=== PATIENT | male | born 1980 | race Caucasian/White ===

== ENCOUNTER 2017-07-12 13:58 | Emergency (ER) | payer OTHER, SELFPAY ==
[2017-07-12 14:00] VITALS: BP 128/74; PULSE 88; RESP 14; TEMP 36.8; O2SAT 100; BMI 22.4
--- NOTE | 2017-07-12 14:38 | ED.VISSUMM ---
- ER Visit Summary Date of Service: 07/12/17 Chief Complaint: Low back pain History of Present Illness: The patient is a 36 M past medical or surgical history. No prior back surgery. 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 States his low back hurt today and he can go to work as he did not feel like lifting with his back discomfort. He denies any significant back problems in the past. Denies any fever. Denies any bowel or bladder incontinence. Denies any recent trauma. Denies any recent leg weakness, numbness or pain radiating to either leg. Physical Examination: Very young male. Vital signs are stable afebrile. Pulse ox are percent on room air no signs of hypoxia. HEENT exam unremarkable. Neck nontender. Lungs clear to auscultation bilaterally. Heart regular rate and rhythm no murmur. Abdomen soft nontender no peritoneal signs. He is moving all 4 extremities. They are neurovascularly intact. 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 He has 5 out of 5 dorsi plantarflexion of both lower extremities. No cauda equina. No saddle anesthesia. Normal medial thigh sensation. Full range of motion of both lower extremities. Normal strength. Negative straight leg raise bilaterally. Neurologic exam is normal. No motor or sensory deficits. NIH is 0. Back exam he has right paralumbar soft tissue tenderness consistent with myofascial strain of his lower back. The cervical, thoracic and lumbar spine are nontender. There is no warmth or redness. No signs of discitis. Test Results: none Emergency Department Course and Treatment: On exam are all consistent with myofascial strain. He needs no testing. He is comfortable being discharged to home. Treatment Plan: 800 mg 3 times a day with food. Hot shower, warm bath and massage. Disposition: dc Impression: Low back pain secondary to paralumbar myofascial strain This note was generated with [employer] dictation software. It may contain incorrect words, spelling, and punctuation that were not noted in review of the chart prior to signing ED Disposition - Plan for ED Patient: Chief Complaint: Back Referrals: Care Physician,No Primary [Primary Care Provider] -
--- NOTE | 2017-07-12 14:41 | ED.DCSUM_ITS ---
- ER Visit Summary Date of Service: 07/12/17 Chief Complaint: Low back pain History of Present Illness: The patient is a 36 M past medical or surgical history. No prior back surgery. 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 States his low back hurt today and he can go to work as he did not feel like lifting with his back discomfort. He denies any significant back problems in the past. Denies any fever. Denies any bowel or bladder incontinence. Denies any recent trauma. Denies any recent leg weakness, numbness or pain radiating to either leg. Physical Examination: Very young male. Vital signs are stable afebrile. Pulse ox are percent on room air no signs of hypoxia. HEENT exam unremarkable. Neck nontender. Lungs clear to auscultation bilaterally. Heart regular rate and rhythm no murmur. Abdomen soft nontender no peritoneal signs. He is moving all 4 extremities. They are neurovascularly intact. 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 He has 5 out of 5 dorsi plantarflexion of both lower extremities. No cauda equina. No saddle anesthesia. Normal medial thigh sensation. Full range of motion of both lower extremities. Normal strength. Negative straight leg raise bilaterally. Neurologic exam is normal. No motor or sensory deficits. NIH is 0. Back exam he has right paralumbar soft tissue tenderness consistent with myofascial strain of his lower back. The cervical, thoracic and lumbar spine are nontender. There is no warmth or redness. No signs of discitis. Test Results: none Emergency Department Course and Treatment: On exam are all consistent with myofascial strain. He needs no testing. He is comfortable being discharged to home. Treatment Plan: 800 mg 3 times a day with food. Hot shower, warm bath and massage. Disposition: dc Impression: Low back pain secondary to paralumbar myofascial strain This note was generated with [employer] dictation software. It may contain incorrect words, spelling, and punctuation that were not noted in review of the chart prior to signing ED Disposition - Plan for ED Patient: Chief Complaint: Back Referrals: Care Physician,No Primary [Primary Care Provider] -
--- NOTE | 2017-07-12 14:48 | ED.DEP ---
ED Disposition - Plan for ED Patient: Disposition: Home or Assisted Living Chief Complaint: Back Instructions: ED Spasm Back No Trauma, ED Sprain Strain Lumbar Referrals: Rodney Stevens MD [STAFF PHYSICIAN] - 1 Week if not improving Additional Instructions: Shower, warm bath and massage. Motrin 600-800 mg 3 times a day with food for pain and inflammation. Return if increasing pain, fever, leg weakness, numbness or incontinence of your bowel or bladder. Follow-up with primary care physician if not improving.
[2017-07-12 15:15] VITALS: BP 108/67; PULSE 77; RESP 15; O2SAT 100
== END 2017-07-12 15:16 | disposition home or self-care (01) ==
PROVIDERS: Emergency Provider Emergency Medicine
DX: S39.012A Strain of muscle, fascia and tendon of lower back, initial encounter (principal); M54.5 Low back pain; Z72.0 Tobacco use; X58.XXXA Exposure to other specified factors, initial encounter; Y93.89 Activity, other specified; Y92.89 Other specified places as the place of occurrence of the external cause; Y99.8 Other external cause status
CPT/HCPCS: 99282

== ENCOUNTER 2017-07-23 14:27 | Emergency (ER) | payer SELFPAY ==
[2017-07-23 14:28] VITALS: BP 124/86; PULSE 93; RESP 16; TEMP 37.2; O2SAT 97; BMI 22.6
--- NOTE | 2017-07-23 15:07 | ED.VISSUMM ---
- ER Visit Summary Date of Service: 07/23/17 Chief Complaint: Dental pain History of Present Illness: The patient is a 36 M presenting with dental pain which started yesterday. Patient states he tried to get into his dentist and is unable to be seen until August 10. He tried Advil at home with minimal relief. He denies fever. He does not currently have a primary care physician. Denies other complaints. Physical Examination: Vitals are stable. Patient is afebrile. Alert no acute distress. HEENT exam poor dentition diffusely. No surrounding fluctuance. No sublingual edema. Neck is supple. Lungs are clear and equal bilaterally. Heart is regular rate and rhythm. Extremities are unremarkable. Skin is warm and dry. Remainder of exam is unremarkable. Emergency Department Course and Treatment: Patient was given penicillin and Naprosyn. Advised to follow-up with his dentist. Advised return to ED if worsening complaints. Disposition: Discharge home Impression: Odontalgia This note was generated with [employer] dictation software. It may contain incorrect words, spelling, and punctuation that were not noted in review of the chart prior to signing ED Disposition - Plan for ED Patient: Chief Complaint: Dental Referrals: Care Physician,No Primary [Primary Care Provider] -
--- NOTE | 2017-07-23 15:12 | DCINST.ED_ITS ---
ED Disposition - Plan for ED Patient: Chief Complaint: Dental Instructions: ED Tooth Pain Prescriptions: Hydrocodone Bitart/Apap 5-325 [[place] 5/325] 1 tablet PO Q6H PRN PRN 2 Days #6 tablet PRN Reason: Pain Naproxen [Naprosyn] 500 mg PO BID PRN #20 tablet Penicillin V Potassium 500 mg PO 4X/DAY #40 tablet Referrals: Care Physician,No Primary [Primary Care Provider] -
[2017-07-23 15:19] VITALS: BP 134/77; PULSE 61; RESP 15; O2SAT 98
== END 2017-07-23 15:23 | disposition home or self-care (01) ==
LOC: ED 15:07
PROVIDERS: Emergency Provider Emergency Medicine
DX: K08.89 Other specified disorders of teeth and supporting structures (principal); Z72.0 Tobacco use
CPT/HCPCS: 99282

== ENCOUNTER 2018-08-21 18:15 | Emergency (ER) | payer SELFPAY ==
[2018-08-21 18:17] VITALS: BP 117/88; PULSE 91; RESP 18; TEMP 36.7; O2SAT 99; BMI 22.6
--- NOTE | 2018-08-21 18:53 | ED.DCSUM_ITS ---
- ER Visit Summary Date of Service: 08/21/18 Chief Complaint: [Back pain/back injury] History of Present Illness: The patient is a 37 M [presents to the emergency department with a back injury that occurred about 3 weeks ago. Patient states that he was helping a friend move a dresser 3 weeks ago and his foot slipped in the mud causing his back to twist. Initially he did not think much of it but the following day he had a lot of discomfort in his back that has not resolved. Patient describes pain on right and left side of the lower back. He states that with certain movements intermittently he will have pain radiating into his left thigh as well as the right thigh. He denies any saddle anesthesia. He denies any weakness in extremities. He denies any numbness or tingling. Patient denies urinary symptoms.] Physical Examination: [HEENT-PERRLA, EOMI. Cranial nerves II through XII grossly intact. TMs clear. Mucous membranes moist. No adenopathy. Cardiovascular-regular rate and rhythm without murmur or ectopy Lungs-clear to auscultation, chest wall stable without crepitus or subcu emphysema Abdomen-normoactive bowel sounds, soft, nontender, no rebound or rigidity, no peritoneal signs. Back exam-patient has no real tenderness over the thoracic or lumbar spine. Patient has diffuse tenderness palpation over the right and left lumbar paraspinal musculature that reproduces his pain. He has negative straight leg raises. Deep tendon reflexes are plus 2 out of 4 bilaterally at the patella and Achilles. Patient has normal L5 extension bilaterally. Patient has normal sensation to light touch. Extremities-intact ?4, normal range of motion, normal pulses, atraumatic] Test Results: [None indicated. Patient has no signs or symptoms of cauda equina. He has no tenderness in the midline of his back therefore I do not feel any x-rays are indicated. Also based on mechanism I do not feel any imaging is indicated.] Emergency Department Course and Treatment: [] Treatment Plan: [Patient will be given a prescription for Naprosyn, Flexeril, and [place]. Patient will be given referral to primary care physician for follow- up within next 5-7 days.] Disposition: [Discharged home in stable condition. Patient advised to return if worsening pain, weakness the extremities, change of bowel or bladder function, or condition should worsen anyway.] Impression: [Lumbosacral strain.] This note was generated with [employer] dictation software. It may contain incorrect words, spelling, and punctuation that were not noted in review of the chart prior to signing ED Disposition - Plan for ED Patient: Referrals: Care Physician,No Primary [Primary Care Provider] -
--- NOTE | 2018-08-21 18:53 | ED.DEP ---
ED Disposition - Plan for ED Patient: Instructions: ED Sprain Strain Lumbar Prescriptions: Hydrocodone Bitart/Apap 5-325 [[place] 5MG-325MG] 1 tab PO Q4H PRN PRN 2 Days #20 tab PRN Reason: Pain Naproxen [Naprosyn] 500 mg PO BID PRN #20 tab Cyclobenzaprine [Flexeril] 10 mg PO TID PRN #20 tab PRN Reason: Muscle Spasm Referrals: Care Physician,No Primary [Primary Care Provider] - Rodney Stevens MD [STAFF PHYSICIAN] - 5-7 Days
== END 2018-08-21 19:20 | disposition home or self-care (01) ==
LOC: ED 19:07
PROVIDERS: Emergency Provider Emergency Medicine
DX: S39.012A Strain of muscle, fascia and tendon of lower back, initial encounter (principal); Z72.0 Tobacco use; W01.0XXA Fall on same level from slipping, tripping and stumbling without subsequent striking against object, initial encounter; Y93.01 Activity, walking, marching and hiking; Y92.009 Unspecified place in unspecified non-institutional (private) residence as the place of occurrence of the external cause; Y99.8 Other external cause status
CPT/HCPCS: 99282

== ENCOUNTER 2018-12-24 11:27 | Emergency (ER) | payer SELFPAY ==
[2018-12-24 11:28] VITALS: BP 133/65; PULSE 68; RESP 15; TEMP 36.6; O2SAT 98; BMI 22.7
== END 2018-12-24 12:15 | disposition left against medical advice (07) ==
LOC: ED 12:14
PROVIDERS: Emergency Provider Emergency Medicine
DX: M54.2 Cervicalgia (principal)

== ENCOUNTER 2020-11-16 09:24 | Emergency (ER) | payer SELFPAY ==
[2020-11-16 09:25] VITALS: BP 140/99; PULSE 95; RESP 16; TEMP 36.6; O2SAT 99; BMI 21.4
--- NOTE | 2020-11-16 09:46 | RAD_ITS ---
STUDY: X-RAY - LEFT HAND REASON FOR EXAM: Male, 40 years old. Pain TECHNIQUE: 3 view(s) of the hand. COMPARISON: None. FINDINGS: Normal radiocarpal articulation. Normal distal radioulnar joint. Normal visualized carpal bones. Normal carpal articulations Normal carpometacarpal articulation of the thumb. Normal second through fifth carpometacarpal joints. Normal metacarpi. Normal metacarpophalangeal joint of the thumb. Normal interphalangeal joint of the thumb. Normal proximal and distal phalanges of the thumb. Normal metacarpophalangeal joints of the second through fifth fingers. Normal proximal and distal interphalangeal joints of the second through fifth fingers. Normal phalanges of the second through fifth fingers. The soft tissue structures are unremarkable. RAD/Hand Min 3 Views IMPRESSION: Normal x-ray examination of the hand. Electronically Signed: Bryce Bonilla MD at 10:15 EDT , Service support ,
--- NOTE | 2020-11-16 10:44 | EDS_ITS ---
HPI History of Present Illness Chief Complaint: Upper Extremity Injury Narrative Narrative: Patient presenting for evaluation secondary to an injury to the small digit on his left hand. He is left-hand dominant. He states that he accidentally had his finger smashed in a door jam today. He was at work, and was having difficulty using his dominant hand so they sent him to the emergency department. He did suffer a mild laceration over the dorsum of the finger. 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 He chronically has numbness of the tips of his fingers secondary to working with his hands. Patient denies any other injuries at this time. He states that his tetanus status is up-to-date. PFSH PFSH Home Medications cyclobenzaprine 10 mg PO TID PRN #20 tab 08/21/18 [Rx Last Taken Unknown] naproxen 500 mg PO BID PRN #20 tab 08/21/18 [Rx Last Taken Unknown] Allergy/AdvReac Type Severity Reaction Status Date / Time No Known Allergies Allergy Verified 11/16/20 09:25 Social History Smoking Status: Unknown if ever smoked ROS [facility] ED Musculoskeletal Musculoskeletal: Reports other Details: Finger pain Integumentary Reports Abrasions Neurologic Neurologic: Reports paresthesias Hematologic/Lymphatic Hematologic/Lymphatic: Denies easy bleeding or easy bruising Allergic/Immunologic Allergic/Immunologic ED: Reports other Details: No history of immunosuppression EXAM Physical Exam Const Vital Signs: 11/16/20 09:25 Temperature 97.8 F Temperature Source Temporal Pulse Rate 95 Respiratory Rate 16 Blood Pressure 140/99 H Blood Pressure Mean 112 Pulse Ox 99 Oxygen Delivery Method Room Air Positive well nourished and well developed General Appearance ED: well developed and NAD HEENT normocephalic Eyes EOMs intact bilaterally Neck full ROM Resp normal respiratory effort Cardio regular rate and regular rhythm Extremity Extremity Narrative: Examination of the patient's finger, small digits on the left hand, shows a superficial abrasion over the dorsum of the distal phalanx that goes up to the nailbed. There is no apparent nailbed injury, no subungual hematoma. Patient has limited flexion at the DIP, but he is able to flex and extend. No evidence of boutonniere or mallet deformity. Decreased sensation which the patient states is at baseline. Neuro oriented x3 Sensorium / Orientation: alert Psych mental status grossly normal Skin Rashes: no rashes MDM MDM MDM Narrative Medical decision making narrative: Patient presented secondary to a finger injury. There is a superficial wound over the dorsum of the finger that does not require suture repair. Radiographs by my personal interpretation as well as radiology are negative for acute fracture. Patient be placed in a aluminum foam splint, dressing and bacitracin will be placed by nursing staff. Patient was released for work. Radiography Diagnostic Testing: Radiology Impression Hand X-Ray 11/16/20 09:46 IMPRESSION: Normal x-ray examination of the hand. Electronically Signed: Bryce Bonilla MD at 10:15 EDT , Service support , Discharge Plan Triage Chief Complaint: Upper Extremity Injury ED Provider: Cesar Arellano Dx/Rx/DC Orders Clinical Impression: Contusion of finger of left hand, Abrasion of finger of left hand Instructions: ED Finger Contusion Prescriptions: No Action naproxen 500 MG tablet 500 mg PO BID PRN Qty: 20 RF: 0 cyclobenzaprine 10 MG tablet 10 mg PO TID PRN (Reason: Muscle Spasm) Qty: 20 RF: 0 Primary Care Provider: Care Physician,No Primary Referrals: Care Physician,No Primary [Primary Care Provider] - Activity Restrictions/Additional Instructions: Follow-up with your primary care doctor as needed Disposition Disposition: Home, Self Care
[2020-11-16 10:58] VITALS: RESP 16
== END 2020-11-16 11:20 | disposition home or self-care (01) ==
LOC: ED 11:10
PROVIDERS: Emergency Provider Emergency Medicine
DX: S60.222A Contusion of left hand, initial encounter (principal); W23.0XXA Caught, crushed, jammed, or pinched between moving objects, initial encounter; Y93.89 Activity, other specified; Y92.89 Other specified places as the place of occurrence of the external cause; Y99.0 Civilian activity done for income or pay
CPT/HCPCS: 73130; 99283